=== PATIENT | male | born 1980 | race Caucasian/White ===

== ENCOUNTER 2018-12-14 07:11 | Emergency (ER) | payer OTHER ==
--- NOTE | 2018-12-14 07:46 | PDOC ---
History of Present Illness - General Chief Complaint: Wound Stated Complaint: TESTICULAR SWELLING Time Seen by Provider: 12/14/18 07:46 - History of Present Illness Initial Comments: 12/14/18 07:47 Mr. Berry is a 38 yo male w/ pmh of "abscesses" in the past who presents for evaluation of 1 week history of scrotum pain and swelling. Patient reports he has had similar in the past near perineal area however has never followed up. Patient further reports a 1 week history of sweats with fever and chills. Patient reports pain has been excruciating. Denies any trauma to the area. Denies any strain. Denies any other complaints at this time. The patient denies chest pain, shortness of breath, headache and dizziness. Denies nausea, vomit, diarrhea and constipation. Denies dysuria, frequency, urgency and hematuria. Past History - Past Medical History Allergies/Adverse Reactions: Allergies Allergy/AdvReac Type Severity Reaction Status Date / Time No Known Allergies Allergy Verified 12/14/18 07:15 Home Medications: Ambulatory Orders Famotidine [Pepcid] 20 mg PO DAILY #0 tablet 01/25/13 Clindamycin [Cleocin -] 150 mg PO Q6H #84 capsule 12/14/18 Anemia: No Asthma: No Cancer: No Cardiac Disorders: No CVA: No COPD: No CHF: No Dementia: No Diabetes: No GI Disorders: No Disorders: No HTN: No Hypercholesterolemia: No Liver Disease: No Seizures: No Thyroid Disease: No - Surgical History Abdominal Surgery: No Appendectomy: No Cardiac Surgery: No Cholecystectomy: No Lung Surgery: No Neurologic Surgery: No Orthopedic Surgery: Yes (orif left tibia 2006) - Suicide/Smoking/Psychosocial Hx Smoking Status: Yes Smoking History: Current every day smoker Have you smoked in the past 12 months: Yes Number of Cigarettes Smoked Daily: 20 'Breaking Loose' booklet given: 01/24/13 Hx Alcohol Use: No Drug/Substance Use Hx: No Substance Use Type: None Hx Substance Use Treatment: No Review of Systems - Review of Systems Comments:: 12/14/18 07:47 GENERAL/CONSTITUTIONAL: +Fever/Chills as described.. No weakness. HEAD, EYES, EARS, NOSE AND THROAT: No change in vision. No ear pain or discharge. No sore throat. CARDIOVASCULAR: No chest pain or shortness of breath RESPIRATORY: No cough, wheezing, or hemoptysis. GASTROINTESTINAL: No nausea, vomiting, diarrhea or constipation. GENITOURINARY: No dysuria, frequency, or change in urination. MUSCULOSKELETAL: No joint or muscle swelling or pain. No neck or back pain. SKIN: No rash NEUROLOGIC: No headache, vertigo, loss of consciousness, or change in strength/ sensation. ENDOCRINE: No increased thirst. No abnormal weight change HEMATOLOGIC/LYMPHATIC: No anemia, easy bleeding, or history of blood clots. ALLERGIC/IMMUNOLOGIC: No hives or skin allergy. : +Scrotal mass midline. Described as "like I have a third ball" *Physical Exam - Physical Exam Comments: 12/14/18 07:47 GENERAL: Awake, alert, and fully oriented, in no acute distress HEAD: No signs of trauma, normocephalic, atraumatic EYES: PERRLA, EOMI, sclera anicteric, conjunctiva clear ENT: Auricles normal inspection, hearing grossly normal, nares patent, oropharynx clear without exudates. Moist mucosa NECK: Normal ROM, supple, no lymphadenopathy, JVD, or masses LUNGS: No distress, speaks full sentences, clear to auscultation bilaterally HEART: Regular rate and rhythm, normal S1 and S2, no murmurs, rubs or gallops, peripheral pulses normal and equal bilaterally. ABDOMEN: Soft, nontender, normoactive bowel sounds. No guarding, no rebound. No masses EXTREMITIES: Normal inspection, Normal range of motion, no edema. No clubbing or cyanosis. NEUROLOGICAL: Cranial nerves II through XII grossly intact. Normal speech, normal gait, no focal sensorimotor deficits SKIN: Warm, Dry, normal turgor, no rashes or lesions noted. : Approx. 4-5cm diameter abscess noted to midline of scrotum. Procedures - Incision and Drainage I&D Site: Bilateral: Other (Midline Scrotal abcess) Anesthesia: 1% Lidocaine Volume(ml): 4 Blade Size: 11 Attempts: 1 Iodinated Packin in Complications: none Dressing: Yes ED Treatment Course - LABORATORY CBC & Chemistry Diagram: 12/14/18 08:36 12/14/18 08:36 Medical Decision Making - Medical Decision Making 12/14/18 13:58 Mr. Berry is a 38 yo male w/ pmh as described who presents for evaluation of simple abscess concerning for MRSA infection vs. tracking infection to perineal area / scrotum. Patient evaluated with labs as below as well as CT pelvis and US. CT pelvis and US confirmed simple abscess only; 4.7x1.9cm. Patient given pain medications as well as anxiolytics and abscess drained as above. Patient placed on ABX and will f/u in 2 days for wound check. Patient verbalized understanding and agreement and will comply. Patient also given resident clinic for establishment of PCP care. Discharging to home. Laboratory Results - last 24 hr 12/14/18 12/14/18 12/14/18 08:36 08:36 08:36 WBC 12.9 H RBC 4.80 Hgb 14.8 Hct 45.0 MCV 93.8 MCH 30.9 MCHC 33.0 RDW 13.9 Plt Count 253 D MPV 9.9 Absolute Neuts (auto) 9.7 H Neutrophils % 75.5 Lymphocytes % 16.0 Monocytes % 6.6 Eosinophils % 1.5 D Basophils % 0.4 Nucleated RBC % 0 PT with INR 11.60 INR 0.98 PTT (Actin FS) 38.5 H VBG pH POC VBG pCO2 POC VBG pO2 VBG HCO3 VBG O2 Sat ([place]lim[place]ia) VBG Base Excess Sodium 136 Potassium 4.5 Chloride 106 Carbon Dioxide 28 Anion Gap 2 L BUN 15 Creatinine 1.0 Est GFR (CKD-EPI)AfAm 110.94 Est GFR (CKD-EPI)NonAf 95.72 Random Glucose 97 Lactic Acid Calcium 9.8 Total Bilirubin 0.4 AST 12 L ALT 21 Alkaline Phosphatase 105 Troponin I Total Protein 8.2 Albumin 4.0 Urine Color Urine Appearance Urine pH Ur Specific Frederick Urine Protein Urine Glucose (UA) Urine Ketones Urine Blood Urine Nitrite Urine Bilirubin Urine Urobilinogen Ur Leukocyte Esterase 12/14/18 12/14/18 12/14/18 08:36 08:36 08:45 WBC RBC Hgb Hct MCV MCH MCHC RDW Plt Count MPV Absolute Neuts (auto) Neutrophils % Lymphocytes % Monocytes % Eosinophils % Basophils % Nucleated RBC % PT with INR INR PTT (Actin FS) VBG pH 7.30 L POC VBG pCO2 53.1 H POC VBG pO2 26.4 L VBG HCO3 25.2 VBG O2 Sat ([place]) 41.8 L VBG Base Excess -1.8 Sodium Potassium Chloride Carbon Dioxide Anion Gap BUN Creatinine Est GFR (CKD-EPI)AfAm Est GFR (CKD-EPI)NonAf Random Glucose Lactic Acid 0.7 Calcium Total Bilirubin AST ALT Alkaline Phosphatase Troponin I < 0.02 Total Protein Albumin Urine Color Urine Appearance Urine pH Ur Specific Frederick Urine Protein Urine Glucose (UA) Urine Ketones Urine Blood Urine Nitrite Urine Bilirubin Urine Urobilinogen Ur Leukocyte Esterase 12/14/18 11:00 WBC RBC Hgb Hct MCV MCH MCHC RDW Plt Count MPV Absolute Neuts (auto) Neutrophils % Lymphocytes % Monocytes % Eosinophils % Basophils % Nucleated RBC % PT with INR INR PTT (Actin FS) VBG pH POC VBG pCO2 POC VBG pO2 VBG HCO3 VBG O2 Sat ([place]ia) VBG Base Excess Sodium Potassium Chloride Carbon Dioxide Anion Gap BUN Creatinine Est GFR (CKD-EPI)AfAm Est GFR (CKD-EPI)NonAf Random Glucose Lactic Acid Calcium Total Bilirubin AST ALT Alkaline Phosphatase Troponin I Total Protein Albumin Urine Color Yellow Urine Appearance Clear Urine pH 5.5 Ur Specific [place] 1.044 H Urine Protein Negative Urine Glucose (UA) Negative Urine Ketones Negative Urine Blood Negative Urine Nitrite Negative Urine Bilirubin Negative Urine Urobilinogen 1.0 Ur Leukocyte Esterase Negative *DC/Admit/Observation/Transfer Diagnosis at time of Disposition: Scrotal wall abscess - Discharge Dispostion Disposition: HOME - Referrals Referrals: [facility] [place] [Provider Group] - Patient Instructions Printed Discharge Instructions: DI for Scrotal Abscess Additional Instructions: You were evaluated today in the ER and found to have a simple abscess. We drained it without difficulty and started you on antibiotics. Please take all antibiotics as described and follow-up in 2 days for wound re-check. We have also provided you with information that you may use to establish a primary care provider. Return to ER immediately if any fever, chills, increase in pain, or other concerning symptoms. - Post Discharge Activity
[2018-12-14] MEDS ORDERED: ACETAMINOPHEN 1000 MG/100 ML VIAL (NON FORMULARY) IVPB ONE (08:00)
[2018-12-14] MEDS ORDERED: morphine CARPU-JECT 4 MG/1 ML DISP.SYRIN IVPUSH ONE ×3 (08:00→13:39)
[2018-12-14 08:15] VITALS: BMI 34.4
[2018-12-14] MEDS ORDERED: ACETAMINOPHEN INJECTION 100 ML IVPB ONE (08:16)
[2018-12-14] MEDS ORDERED: MORPHINE SULFATE 2 MG/ML VIAL ONE ×2 (08:16→13:49)
[2018-12-14 09:06] LABS: VENOUS PC02 53.1 mmHg (41-51); VENOUS PH 7.3 (7.31-7.41)
[2018-12-14 09:08] LABS: VENOUS PO2 26.4 mmHg (30-40)
[2018-12-14 09:17] LABS: INR 0.98 (0.83-1.09); PROTHROMBIN TIME (PATIENT) 11.6 SEC (9.7-13.0)
[2018-12-14 09:19] LABS: ACTIVATED PTT 38.5 SECONDS (25.2-36.5)
[2018-12-14 09:25] LABS: BILIRUBIN,TOTAL 0.4 mg/dL (0.2-1); CALCIUM 9.8 mg/dL (8.5-10.1); POTASSIUM 4.5 mmol/L (3.5-5.1); TOT PROT 8.2 g/dl (6.4-8.2)
[2018-12-14 09:31] LABS: BASO % 0.4 % (0-2.0); EOS % 1.5 % (0-4.5); HEMOGLOBIN 14.8 GM/dL (11.7-16.9); MCH 30.9 pg (25.7-33.7); MEAN CELL VOLUME 93.8 fl (80-96); MEAN PLT VOLUME 9.9 fl (7.5-11.1); MONO % 6.6 % (3.8-10.2); NEUT % 75.5 % (42.8-82.8); PLATELET COUNT 253 K/MM3 (134-434); RDW 13.9 % (11.9-15.9); WHITE BLOOD COUNT 12.9 K/mm3 (4.0-10.0)
[2018-12-14 11:38] LABS: PH,URINE 5.5 (5.0-8.0); URINE APPEARANCE CLEAR; URINE BILIRUBIN NEGATIVE (NEGATIVE); URINE COLOR YELLOW; URINE GLUCOSE (UA) NEGATIVE (NEGATIVE); URINE KETONE NEGATIVE (NEGATIVE); URINE LEUK ESTERASE NEGATIVE (NEGATIVE); URINE NITRITE NEGATIVE (NEGATIVE); URINE PROTEIN NEGATIVE (NEGATIVE)
[2018-12-14] MEDS ORDERED: MIDAZOLAM HCL 2 MG/2 ML SINGLE DOSE VIAL IVPUSH ONE (13:14)
[2018-12-14] MEDS ORDERED: MIDAZOLAM HCL 2 MG/2 ML SINGLE DOSE VIAL ONE (13:23)
--- NOTE | 2018-12-14 13:40 | PDOC ---
Attending Attestation - Resident Resident Name: Sav Bernal - ED Attending Attestation I have performed the following: I have examined & evaluated the patient, The case was reviewed & discussed with the resident, I agree w/resident's findings & plan, Exceptions are as noted - HPI HPI: 12/14/18 16:18 Reviewed Residents HPI - Physicial Exam PE: 12/14/18 16:18 Reviewed Residents PE - Medical Decision Making 12/14/18 16:20 38 years old no significant past medical history previous history of abscesses in the past. Presents to the ED with yuliet-scrotal abscess No fever slightly elevated white blood cell count CT demonstrates no intra- abdominal or intrapelvic involvement Ultrasound demonstrates yuliet-scrotal abscess not involving the scrotum Patient verbally consented for incision and drainage On the universal sterile precautions using 11 blade syringe abscess incised and drained with removal of approximately 15-20 mL of pus Packed Patient tolerated procedure well he will return to the ED in 2 days for packing change Patient covered with clindamycin for MRSA coverage given previous history of abscesses Patient also provided with clinic follow-up Findings, the need for follow-up and strict return instructions discussed with patient.
[2018-12-14 14:52] VITALS: BP 110/62; PULSE 63; TEMP 98.1
--- NOTE | 2018-12-14 15:04 | EKG ---
Test Reason : Blood Pressure : / mmHG Vent. Rate : 061 BPM Atrial Rate : 061 BPM P-R Int : 178 ms QRS Dur : 100 ms QT Int : 396 ms P-R-T Axes : 049 032 018 degrees QTc Int : 398 ms NORMAL SINUS RHYTHM RSR' OR QR PATTERN IN V1 SUGGESTS RIGHT VENTRICULAR CONDUCTION DELAY NO PREVIOUS ECGS AVAILABLE Confirmed by GLENN RANGEL MD ([id number]) on 12/14/2018 3:04:33 PM Referred By: Confirmed By:GLENN RANGEL MD
== END 2018-12-14 14:52 | disposition home or self-care (01) ==
LOC: JER 07:11
PROC: 3E033NZ Introduction of Analgesics, Hypnotics, Sedatives into Peripheral Vein, Percutaneous Approach (ICD-10-PCS; principal; 2018-12-14)
PROC: 3E0337Z Introduction of Electrolytic and Water Balance Substance into Peripheral Vein, Percutaneous Approach (ICD-10-PCS; 2018-12-14)
DX: N49.2 Inflammatory disorders of scrotum (principal)
CPT/HCPCS: 36415; 71045-TC-FY; 72193-TC; 76870-TC; 80053; 81003; 82803; 83605; 84484; 85025; 85610; 85730; 87040; 87070; 87077; 87086; 87186; 87205; 93005; 93010; 96374; 96375; 96376; 99283-25; J0131